=== PATIENT | female | born 1975 | race African-American/Black ===

== ENCOUNTER 2022-03-13 16:52 | Observation (INO) ==
[2022-03-13 17:24] LABS: Basophils # 0.1 10*3/uL (0.0-0.2); Basophils % 0.7 % (0.0-0.8); Eosinophils # 0.2 10*3/uL (0.0-0.87); Eosinophils % 2.1 % (0.00-10.9); Hematocrit 36.9 VOL% (35.7-47.0); Hemoglobin 11.6 GM/DL (12.0-16.0); Immature Granulocytes % 0.3 %; Immature Granulocytes Absolute 0.02 #; Lymphocytes # 3.2 10*3/uL (1.4-4.0); Mean Corpuscular HGB Conc 31.4 GM/DL (32-36); Mean Corpuscular Volume 89.8 FL (87-102); Mean Platelet Volume 9.6 FL (9.6-12.0); Monocytes # 0.7 10*3/uL (0.11-0.8); Monocytes % 9.4 % (1.7-12.7); Neutrophils % 42.5 % (38.7-73.9); Platelet Count 323 T/CUMM (130-400); Red Blood Count 4.11 MC/CUMM (3.8-5.5); Red Cell Distribution Width 14.4 % (9.3-17.3); White Blood Count 7.2 T/CUMM (4-12)
[2022-03-13 17:57] LABS: Albumin 3.6 G/DL (3.4-5.0); Bilirubin,Total 0.5 MG/DL (0.20-1.00); Calcium 9.4 MG/DL (8.5-10.1); Osmolality,Calculated 278.4 MOS/KG (273-304); Potassium 3.5 MMOL/L (3.5-5.1); Total Protein 7.4 G/DL (6.4-8.2)
[2022-03-13] MEDS ORDERED: FUROSEMIDE 40 MG/4 ML VIAL IV STA (18:19)
[2022-03-13] MEDS ORDERED: ASPIRIN 325 MG TABLET PO STA (18:19)
[2022-03-13] MEDS ORDERED: ENOXAPARIN 100 MG/ML SYRINGE SUBCUT STA (18:19)
[2022-03-13] MEDS ORDERED: NITROGLYCERIN 2% OINT 1 INCH/GM PACK TOP STA (18:19)
[2022-03-13] MEDS ORDERED: MORPHINE 2 MG/1 ML SYRINGE IV PRN (18:33)
[2022-03-13] MEDS ORDERED: ACETAMINOPHEN 325 MG TABLET PO PRN (18:33)
[2022-03-13] MEDS ORDERED: ONDANSETRON 4 MG/2 ML VIAL IV PRN (18:33)
[2022-03-13] MEDS ORDERED: ZALEPLON 5 MG CAPSULE PO PRN (18:33)
[2022-03-14 04:01] LABS: Basophils # 0.1 10*3/uL (0.0-0.2); Basophils % 0.8 % (0.0-0.8); Eosinophils # 0.2 10*3/uL (0.0-0.87); Eosinophils % 2.5 % (0.00-10.9); Hematocrit 36.5 VOL% (35.7-47.0); Hemoglobin 11.4 GM/DL (12.0-16.0); Immature Granulocytes % 0.4 %; Immature Granulocytes Absolute 0.03 #; Lymphocytes # 3.2 10*3/uL (1.4-4.0); Lymphocytes % 42.9 % (21.3-54.2); Mean Corpuscular HGB Conc 31.2 GM/DL (32-36); Mean Platelet Volume 9.8 FL (9.6-12.0); Monocytes % 13.2 % (1.7-12.7); Neutrophils % 40.2 % (38.7-73.9); Platelet Count 311 T/CUMM (130-400); Red Cell Distribution Width 14.5 % (9.3-17.3); White Blood Count 7.5 T/CUMM (4-12)
[2022-03-14 04:19] LABS: Albumin 3.5 G/DL (3.4-5.0); Bilirubin,Total 0.6 MG/DL (0.20-1.00); Calcium 9.3 MG/DL (8.5-10.1); Osmolality,Calculated 278.3 MOS/KG (273-304); Potassium 3.6 MMOL/L (3.5-5.1); Risk Ratio 2.87; Total Protein 7.5 G/DL (6.4-8.2); VLDL Cholesterol 24.4 MG/DL
[2022-03-14] MEDS ORDERED: carvediloL 6.25 MG TABLET PO SCH (08:00)
[2022-03-14] MEDS ORDERED: SPIRONOLACTONE 25 MG TABLET PO SCH (08:00)
[2022-03-14] MEDS ORDERED: lisinopriL 2.5 MG TABLET PO SCH (09:00)
[2022-03-14] MEDS ORDERED: ESCITALOPRAM 10 MG TABLET PO SCH (09:00)
[2022-03-14] MEDS ORDERED: PANTOPRAZOLE 40 MG TABLET PO SCH (09:00)
[2022-03-14] MEDS ORDERED: carvediloL 6.25 MG TABLET PO ONE (09:16)
[2022-03-14 11:50] VITALS: BP 143/88
[2022-03-14] MEDS ORDERED: carvediloL 12.5 MG TABLET PO SCH (17:00)
[2022-03-14] MEDS ORDERED: ENOXAPARIN 40 MG/0.4 ML SYRINGE SUBCUT SCH (21:00)
== END 2022-03-14 15:15 | disposition home or self-care (01) ==
LOC: N.EDINP 16:52 → N.ED 16:52 → N.EDINP 21:40 → N.2W 22:06
PROVIDERS: ADMIT Internal Medicine; ATTEND Internal Medicine